=== PATIENT | female | born 2000 | race Caucasian/White ===

== ENCOUNTER 2021-12-23 00:57 | Emergency (ER) | payer BC ==
[~2021-12-23] VITALS: Ht 160 cm; Wt 71.8 kg
[2021-12-23 01:21] VITALS: BP 128/87; TEMP 98.4
[2021-12-23 01:56] LABS: TRICYCLIC ANTIDEPRESS URINE NEGATIVE
[2021-12-23 02:08] VITALS: PULSE 87
== END 2021-12-23 02:22 | disposition home or self-care (01) ==
LOC: COL.ER 00:57
PROVIDERS: Nurse Practitioner Primary Care
DX: F10.229 Alcohol dependence with intoxication, unspecified (principal); Y90.8 Blood alcohol level of 240 mg/100 ml or more